=== PATIENT | female | born 1970 | race Caucasian/White ===

== ENCOUNTER 2017-11-10 18:49 | Emergency (ER) | payer SELFPAY ==
--- NOTE | 2017-11-10 19:38 | ER ---
Nurse's Notes [facility] Name: Elena Manzano Age: 47 yrs Sex: Female : 1970 Arrival Date: 11/10/2017 Time: 18:52 Bed 24 Private MD: None, None Diagnosis: Cutaneous abscess of right lower limb Presentation: 11/10 19:12 Presenting complaint: Patient states: new abscess to right calf showed up tl3 yesterday,left calf abscess was treated by unknown abx : last dose on . Transition of care: patient was not received from another setting of care. Onset of symptoms. Risk Assessment: Do you want to hurt yourself or someone else? Patient reports no desire to harm self or others. Initial Sepsis Screen: Does the patient meet any 2 criteria? No. Patient's initial sepsis screen is negative. Does the patient have a suspected source of infection? No. Patient's initial sepsis screen is negative. Care prior to arrival: None. 19:12 Method Of Arrival: Ambulatory tl3 19:12 Acuity: DIANNE 4 tl3 Triage Assessment: 19:15 General: Appears in no apparent distress. comfortable, well groomed, well developed, tl3 well nourished, Behavior is calm, cooperative, appropriate for age. Pain: Complains of pain in right calf. EENT: No signs and/or symptoms were reported regarding the EENT system. Neuro: Level of Consciousness is awake, alert, obeys commands, Oriented to person, place, time, situation, Appropriate for age. Cardiovascular: Patient's skin is warm and dry. Respiratory: Airway is patent Respiratory effort is even, unlabored, Respiratory pattern is regular, symmetrical. GI: No signs and/or symptoms were reported involving the gastrointestinal system. : No signs and/or symptoms were reported regarding the genitourinary system. Derm: Abscess is quarter sized. Musculoskeletal: No deficits noted. 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 - Social history:: Smoking status: Patient/guardian denies using tobacco, never smoked. - Ebola Screening: : No symptoms or risks identified at this time. Screenin:18 Abuse screen: Denies threats or abuse. Nutritional screening: No deficits noted. tl3 Tuberculosis screening: No symptoms or risk factors identified. Fall Risk None identified. Assessment: 19:18 Reassessment: No changes from previously documented assessment. Patient is alert, tl3 oriented x 3, equal unlabored respirations, skin warm/dry/pink. 19:56 Reassessment: Patient appears in no apparent distress at this time. No changes from tl3 previously documented assessment. Patient and/or family updated on plan of care and expected duration. Pain level reassessed. Patient is alert, oriented x 3, equal unlabored respirations, skin warm/dry/pink. Vital Signs: 19:15 BP 125 / 88; Pulse 77; Resp 18; Pulse Ox 100% on R/A; tl3 19:56 BP 123 / 89; Pulse 82; Resp 18; Pulse Ox 100% on R/A; tl3 ED Course: 18:52 Patient arrived in ED. mr 18:52 None, None is Private Physician. mr 19:08 Shanti [facility]wang [facility]C [facility]. snw 19:09 Chetan Rios MD is Attending Physician. snw 19:12 Margarita Funk, CT is Primary Nurse. tl3 19:14 Triage completed. tl3 19:15 Arm band placed on right wrist. tl3 19:18 Patient has correct armband on for positive identification. Bed in low position. Call tl3 light in reach. Side rails up X 1. Pulse ox on. NIBP on. 19:18 Warm blanket given. tl3 19:18 No provider procedures requiring assistance completed. tl3 19:56 Patient did not have IV access during this emergency room visit. tl3 Administered Medications: 19:55 Drug: Bactrim (160 mg-800 mg (DS) 1 tablet Route: PO; tl3 19:57 Follow up: Response: Medication administered at discharge. tl3 19:55 Not Given (Patient Refused; hashad TD within last year): Tetanus-Diphtheria Toxoid Ped tl3 0.5 ml IM once; if pt is not up to date 19:55 Drug: Hibiclens 4 % 1 application Route: Topical; Site: affected area; tl3 19:57 Follow up: Response: No adverse reaction tl3 Outcome: 19:27 Discharge ordered by MD. davis 19:56 Discharged to home ambulatory. tl3 19:56 Condition: good 19:56 Discharge instructions given to patient, Instructed on discharge instructions, follow up and referral plans. medication usage, Demonstrated understanding of instructions, follow-up care, medications, wound care, Prescriptions given X 1. 19:58 Patient left the ED. tl3 Signatures: Shanti Hwang, HAMMER REPAIRER-C HAMMER REPAIRER-Csnw Fernanda Richardson mr Margarita Funk, RN RN tl3
--- NOTE | 2017-11-10 19:39 | EDPHYS ---
Physician Documentation [facility] Name: Elena Manzano Age: 47 yrs Sex: Female : 1970 Arrival Date: 11/10/2017 Time: 18:52 Bed 24 Private MD: None, None ED Physician Chetan Rios HPI: 11/10 19:39 This 47 yrs old Female presents to ER via Ambulatory with complaints of snw Abscess. 19:39 The patient presents with an abscess of the right calf. Description: The affected area snw is very small, raised. Onset: The symptoms/episode began/occurred suddenly. Possible cause(s): unknown. Associated signs and symptoms: Pertinent positives: swelling. Severity of symptoms: At their worst the symptoms were mild, moderate. The patient has experienced a previous episode, last week, pt just finished abx one week ago. States she was given the medications in detention. Is currently in rehab facility and states she doesn't know how she will get the antibiotics. Will give Bactrim 2nd to low cost. The patient has been recently seen by a physician: with similar presenting complaints, and apparently given a diagnosis of Abscess to left lower, lateral calf, I and D with antibiotics performed, was given a prescription for antibiotics. 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 - Social history:: Smoking status: Patient/guardian denies using tobacco, never smoked. - Ebola Screening: : No symptoms or risks identified at this time. ROS: 19:31 Constitutional: Negative for fever, chills, and weight loss, Eyes: Negative for injury, snw pain, redness, and discharge, ENT: Negative for injury, pain, and discharge, Neck: Negative for injury, pain, and swelling, Cardiovascular: Negative for chest pain, palpitations, and edema, Respiratory: Negative for shortness of breath, cough, wheezing, and pleuritic chest pain, Abdomen/GI: Negative for abdominal pain, nausea, vomiting, diarrhea, and constipation, Back: Negative for injury and pain, : Negative for injury, bleeding, discharge, and swelling, MS/Extremity: Negative for injury and deformity, Neuro: Negative for headache, weakness, numbness, tingling, and seizure, Psych: Negative for depression, anxiety, suicide ideation, homicidal ideation, and hallucinations. 19:31 Skin: Positive for sore area to lower right lateral calf with mild edema. Exam: 19:30 Constitutional: This is a well developed, well nourished patient who is awake, alert, snw and in no acute distress. Head/Face: Normocephalic, atraumatic. Eyes: Pupils equal round and reactive to light, extra-ocular motions intact. Lids and lashes normal. Conjunctiva and sclera are non-icteric and not injected. Cornea within normal limits. Periorbital areas with no swelling, redness, or edema. ENT: Nares patent. No nasal discharge, no septal abnormalities noted. Tympanic membranes are normal and external auditory canals are clear. Oropharynx with no redness, swelling, or masses, exudates, or evidence of obstruction, uvula midline. Mucous membranes moist. Neck: Trachea midline, no thyromegaly or masses palpated, and no cervical lymphadenopathy. Supple, full range of motion without nuchal rigidity, or vertebral point tenderness. No Meningismus. Chest/axilla: Normal chest wall appearance and motion. Nontender with no deformity. No lesions are appreciated. Cardiovascular: Regular rate and rhythm with a normal S1 and S2. No gallops, murmurs, or rubs. Normal PMI, no JVD. No pulse deficits. Respiratory: Lungs have equal breath sounds bilaterally, clear to auscultation and percussion. No rales, rhonchi or wheezes noted. No increased work of breathing, no retractions or nasal flaring. Abdomen/GI: Soft, non-tender, with normal bowel sounds. No distension or tympany. No guarding or rebound. No evidence of tenderness throughout. Back: No spinal tenderness. No costovertebral tenderness. Full range of motion. MS/ Extremity: Pulses equal, no cyanosis. Neurovascular intact. Full, normal range of motion. Neuro: Awake and alert, GCS 15, oriented to person, place, time, and situation. Cranial nerves II-XII grossly intact. Motor strength 5/5 in all extremities. Sensory grossly intact. Cerebellar exam normal. Normal gait. Psych: Awake, alert, with orientation to person, place and time. Behavior, mood, and affect are within normal limits. 19:30 Skin: Appearance: normal except for affected area, abscess, that is small, of the pt recently had I\T\D of left lower outer calf abscess, papule developed to lower lateral right calf x 1 day. Vital Signs: 19:15 BP 125 / 88; Pulse 77; Resp 18; Pulse Ox 100% on R/A; tl3 19:56 BP 123 / 89; Pulse 82; Resp 18; Pulse Ox 100% on R/A; tl3 MDM: 19:09 Patient medically screened. snw 19:31 Data reviewed: vital signs, nurses notes. Data interpreted: Pulse oximetry: on room snw air. Counseling: I had a detailed discussion with the patient and/or guardian regarding: the presence of at least one elevated blood pressure reading (>120/80) during this emergency department visit, the need for outpatient follow up, for definitive care, to return to the emergency department if symptoms worsen or persist or if there are any questions or concerns that arise at home. Special discussion: I have referred the patient to see his PCP for further evaluation of high blood pressure. I discussed in detail with the patient the higher chance of wound infection based on his presenting history. Based on the history and exam findings, there is no indication for further emergent testing or inpatient evaluation. I discussed with the patient/guardian the need to see the primary care provider for further evaluation of the symptoms. Administered Medications: 19:55 Drug: Bactrim (160 mg-800 mg (DS) 1 tablet Route: PO; tl3 19:57 Follow up: Response: Medication administered at discharge. tl3 19:55 Not Given (Patient Refused; hashad TD within last year): Tetanus-Diphtheria Toxoid Ped tl3 0.5 ml IM once; if pt is not up to date 19:55 Drug: Hibiclens 4 % 1 application Route: Topical; Site: affected area; tl3 19:57 Follow up: Response: No adverse reaction tl3 Disposition: 11/11 07:07 Co-signature as Attending Physician, Chetan Rios MD I agree with the assessment and glenroy plan of care. Disposition: 11/10/17 19:27 Discharged to Home. Impression: Cutaneous abscess of right lower limb. - Condition is Stable. - Discharge Instructions: Skin Abscess, Heat Therapy. - Prescriptions for Bactrim DS 800- 160 mg Oral Tablet - take 1 tablet by ORAL route every 12 hours for 10 days; 20 tablet. - Medication Reconciliation Form, Thank You Letter, Antibiotic Education, Prescription Opioid Use form. - Follow up: Private Physician; When: 2 - 3 days; Reason: Recheck today's complaints, Continuance of care, Re-evaluation by your physician. Follow up: Emergency Department; When: As needed; Reason: Worsening of condition. Signatures: Chetan Rios MD MD cha Therrien, Shelly, ELECTRIC SPOT WELDER-C ELECTRIC SPOT WELDER-Csnw Margarita Funk, RN RN tl3 Corrections: (The following items were deleted from the chart) 11/10 19:58 19:27 11/10/2017 19:27 Discharged to Home. Impression: Cutaneous abscess of right lower tl3 limb. Condition is Stable. Forms are Medication Reconciliation Form, Thank You Letter, Antibiotic Education, Prescription Opioid Use. Follow up: Private Physician; When: 2 - 3 days; Reason: Recheck today's complaints, Continuance of care, Re-evaluation by your physician. Follow up: Emergency Department; When: As needed; Reason: Worsening of condition. snw
[2017-11-10] MEDS ORDERED: SMZ./TMP. 800/160 MG TABLET ONE (19:54)
[2017-11-10] MEDS ORDERED: TETANUS & DIPHTHERIA TOX,ADULT 0.5 ML VIAL ONE (19:54)
== END 2017-11-10 19:58 | disposition home or self-care (01) ==
LOC: ER 18:49
DX: L02.415 Cutaneous abscess of right lower limb (principal)
CPT/HCPCS: 90714; 99283